=== PATIENT | female | born 1975 | race Caucasian/White ===

== ENCOUNTER 2019-06-27 11:35 | Emergency (ER) | payer BC, OTHER ==
[~2019-06-27] VITALS: Ht 167.6 cm; Wt 103.9 kg
[~2019-06-27 11:35] MED LIST: MOTRIN; [UNRECOGNIZED DRUG - OTHER]
--- NOTE | 2019-06-27 11:56 | NUR ---
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
--- NOTE | 2019-06-27 13:28 | Diagnostic Imaging Report ---
CT C-SPINE W/O - [facility] HISTORY: Left hand numbness and tingling for 2 weeks; neck pain COMPARISON: Report from cervical spine spine radiographs dated 12/05/2015 TECHNIQUE: CT of the cervical spine without contrast. Sagittal and coronal reformations were created. One or more of the following dose reduction techniques were used: Automated exposure control, adjustment of the mA and/or kV according to patient size, and/or utilization of iterative reconstruction technique. FINDINGS: Cervical lordosis is straightened. There is no scoliosis or subluxation. No fractures, compression deformity, or destructive osseous lesions are seen. The craniocervical junction is intact. No gross spinal canal masses are seen. The paravertebral and paraspinal soft tissues are unremarkable. The disc spaces are overall preserved with minimal spondylotic changes. C2-C3: Mild left foraminal stenosis due to uncovertebral and facet arthrosis. No gross canal or right foraminal stenosis. C3-C4: Mild to moderate left foraminal stenosis due to uncovertebral and facet arthrosis. No gross canal or right foraminal stenosis. C4-C5: No gross canal or foraminal stenosis. C5-C6: Mild left foraminal stenosis due to uncovertebral and facet arthrosis. No gross canal or right foraminal stenosis. C6-C7: Mild right and mild to moderate left foraminal stenoses due to uncovertebral and facet arthrosis. No gross canal stenosis. C7-T1: No gross canal or foraminal stenosis. There is minimal bilateral sphenoid sinus mucosal thickening. Screws are seen in the bilateral mandibular angles. IMPRESSION: 1. No acute osseous abnormalities. 2. Minimal spondylosis without gross canal stenosis. 3. Multilevel bilateral degenerative foraminal stenoses - mild to moderate on the left at C3-C4 and mild to moderate on the left at C6-C7. Signed by: Dr. Thuan Larry M.D. on 06/27/2019 1:25 PM
--- NOTE | 2019-06-27 13:33 | Diagnostic Imaging Report ---
CT THORACIC SPINE -[facility] HISTORY: Neck pain COMPARISON: Concurrent cervical spine CT TECHNIQUE: Axial CT images of the thoracic spine were obtained without intravenous contrast. Coronal/sagittal reformations were created. One or more of the following dose reduction techniques were used: Automated exposure control, adjustment of the mA and/or kV according to patient size, and/or utilization of iterative reconstruction technique. FINDINGS: Thoracic kyphosis is preserved. Mild cervicothoracic levoscoliosis is present. There is no significant subluxation. No fracture, compression deformity, or destructive osseous lesions are seen. No gross spinal canal mass is seen. The paravertebral and paraspinal soft tissues are unremarkable. Mild multilevel spondylotic changes are present. There is no gross canal or foraminal stenosis. Gastric postsurgical changes are partially imaged. IMPRESSION: 1. No acute osseous abnormalities. 2. Mild multilevel thoracic spondylosis. Signed by: Dr. Thuan Larry M.D. on 06/27/2019 1:30 PM
[2019-06-27] MEDS ORDERED: KETOROLAC TROMETHAMINE 30 MG/ML VIAL IM ONE (13:45)
== END 2019-06-27 13:58 | disposition home or self-care (01) ==
LOC: FSED 11:35
DX: M54.12 Radiculopathy, cervical region (principal)
CPT/HCPCS: 72125; 72128; 96372; 99283; J1885

== ENCOUNTER 2022-01-07 10:30 | Emergency (ER) | payer BC, OTHER ==
[~2022-01-07] VITALS: Ht 167.6 cm; Wt 103.9 kg
[2022-01-07] MEDS ORDERED: KETOROLAC TROMETHAMINE 30 MG/ML VIAL IV STA (11:34)
[2022-01-07] MEDS ORDERED: HYDROCODONE/APAP 7.5MG-325MG 1 EA TAB PO ONE (15:00)
[2022-01-07] MEDS ORDERED: ACETAMINOPHEN-1 EAC4 PEG (15:03)
[2022-01-07] MEDS ORDERED: ACETAMINOPHEN-1 EAC4 PO (15:34)
[2022-01-07 15:53] VITALS: BP 131/87
== END 2022-01-07 15:44 | disposition home or self-care (01) ==
LOC: ER 10:39
DX: R10.31 Right lower quadrant pain (principal); S76.811A Strain of other specified muscles, fascia and tendons at thigh level, right thigh, initial encounter; W01.0XXA Fall on same level from slipping, tripping and stumbling without subsequent striking against object, initial encounter; Y92.89 Other specified places as the place of occurrence of the external cause; E28.2 Polycystic ovarian syndrome
CPT/HCPCS: 36415; 73700; 84702; 99283; J1885